=== PATIENT | male | born 1935 | race Caucasian/White ===

== ENCOUNTER 2021-06-25 19:15 | Observation (INO) | payer MEDICARE ==
--- NOTE | 2021-06-25 19:48 | ERPHSYRPT ---
- History of Present Illness Time Seen by Provider: 06/25/21 19:44 Source: patient, family Exam Limitations: no limitations Physician History: pt is short of breath since leaving hospital last week for pneumonia. Has not filled his antibiotics. abd nontender without peritoneal signs, no N or V. Timing/Duration: day(s) Severity of Dyspnea-Max: moderate Severity of Dyspnea-Current: moderate Possible Cause: no prior episodes Modifying Factors: Improves With: nothing Associated Symptoms: cough, chest pain/discomfort Allergies/Adverse Reactions: No Known Drug Allergies Allergy (Unverified 06/25/21 19:37) Home Medications: Aspirin EC 81 mg [Ecotrin 81 mg] 81 mg PO DAILY 06/25/21 [History] Atorvastatin Calcium [Lipitor] 10 mg PO HS 06/25/21 [History] Clopidogrel Bisulfate 75 mg [PLAVIX 75 MG Tablet] 75 mg PO DAILY 06/25/21 [History] Digoxin 0.125 mg Tablet [Lanoxin 0.125MG TABLET] 0.125 mg PO DAILY 06/25/21 [History] Fluticasone Propionate [Flonase NASAL] 1 spray NS DAILY 06/25/21 [History] Furosemide 20 mg [Lasix 20 mg] 20 mg PO DAILY 06/25/21 [History] Isosorbide Mononitrate 30 mg [Imdur 30 MG] 30 mg PO DAILY 06/25/21 [History] Magnesium Oxide 400 mg [Mag-Ox 400] 400 mg PO BID 06/25/21 [History] Metoprolol Tartrate 75 mg PO BID 06/25/21 [History] Nitroglycerin 0.4 mg Tablet [Nitrostat 0.4 MG Tablet] 0.4 mg SL UD 06/25/21 [History] PANTOPRAZOLE 40 mg Tablet [Protonix 40MG Tablet] 40 mg PO QAM 06/25/21 [History] - Review of Systems Constitutional: No Fever, No Chills Eyes: No Symptoms Ears, Nose, & Throat: No Symptoms Respiratory: Cough, Dyspnea Cardiac: Chest Pain, No Edema, No Syncope Abdominal/Gastrointestinal: No Abdominal Pain, No Nausea, No Vomiting, No Diarrhea Genitourinary Symptoms: No Dysuria Musculoskeletal: No Back Pain, No Neck Pain Skin: No Rash Neurological: No Dizziness, No Focal Weakness, No Sensory Changes Psychological: No Symptoms Endocrine: No Symptoms Hematologic/Lymphatic: No Symptoms Immunological/Allergic: No Symptoms All Other Systems: Reviewed and Negative - Past Medical History Pertinent Past Medical History: Yes - Nursing Vital Signs Nursing Vital Signs: Initial Vital Signs Temperature 97.1 F 06/25/21 19:38 Pulse Rate 58 L 06/25/21 19:38 Respiratory Rate 22 06/25/21 19:38 Blood Pressure 128/84 06/25/21 19:38 O2 Sat by Pulse Oximetry 95 06/25/21 19:38 Pain Scale Pain Intensity 0 - Physical Exam General Appearance: moderate distress, alert Eye Exam: PERRL/EOMI Neck Exam: normal inspection, supple Respiratory Exam: crackles/rales, rhonchi, wheezing Cardiovascular/Chest Exam: normal heart sounds, regular rate/rhythm Abdominal/Gastrointestinal Exam: soft, No tenderness, No distention, No mass Extremity Exam: non-tender, normal range of motion, normal inspection, no calf tenderness, no pedal edema Peripheral Pulses Exam: carotid (R): 2+, carotid (L): 2+, femoral (R): 2+, femoral (L): 2+, dorsalis-pedis (R): 2+, dorsalis-pedis (L): 2+ Neurologic Exam: alert, oriented x 3, cooperative, pump assembler II-XII nml as tested, sensation nml, No motor deficits Skin Exam: normal color, warm, No dry SpO2 Interpretation: hypoxic SpO2: 97 O2 Delivery: Nasal Cannula - Course Nursing assessment & vital signs reviewed: Yes EKG Interpreted by Me: A-fib, Right [place] Deviation, Right Bundle Branch Block, Non-specific ST Changes - Radiology Exams Chest X-ray Interpretation: Reviewed by me, Pneumonia (Right LL) - CT Exams Chest CT Interpretation: No PE, Other (COPD, bilateral effusions, CHF, ) Ordered Tests: Active Orders 24 hr Category Date Time Status 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 Care 06/25/21 19:50 Active EKG-ER Only STAT Care 06/25/21 19:49 Active IV Insertion STAT Care 06/25/21 19:49 Active Pulse Oximetry (ED) STAT Care 06/25/21 19:49 Active CHEST 1 VIEW (PORTABLE) Stat Exams 06/25/21 19:50 Taken CHEST WITH CONTRAST [CT] Stat Exams 06/25/21 21:09 Taken CBC W DIFF Stat Lab 06/25/21 20:16 Completed CMP Stat Lab 06/25/21 20:16 Completed D-DIMER QUANTITATIVE Stat Lab 06/25/21 20:16 Completed INFLUENZA A+B KATTY Stat Lab 06/25/21 20:45 Completed Lactic Acid Stat Lab 06/25/21 20:16 Completed Lactic Acid Stat Lab 06/25/21 22:22 Completed NT PRO BNP Stat Lab 06/25/21 20:16 Completed TROPONIN Q3H Lab 06/25/21 20:21 Completed TROPONIN Q3H Lab 06/25/21 23:24 Completed TROPONIN Q3H Lab 06/26/21 02:00 Ordered TROPONIN Q3H Lab 06/26/21 05:00 Ordered TROPONIN Q3H Lab 06/26/21 08:00 Ordered Respiratory Therapy Assessment DAILY RT 06/25/21 19:59 Completed Medication Summary Generic Name Dose Route Start Last Admin Trade Name Freq PRN Reason Stop Dose Admin Furosemide 20 mg 06/26/21 23:32 Furosemide 20 Mg/Vial IV 06/26/21 23:33 STAT ONE Sodium Chloride 1,000 mls @ 50 mls/hr 06/25/21 20:00 06/25/21 20:21 Sodium Chloride 0.9% 1000 Ml IV 07/25/21 19:59 50 mls/hr .Q20H OSORIO Administration Discontinued Medications Generic Name Dose Route Start Last Admin Trade Name Freq PRN Reason Stop Dose Admin Albuterol/Ipratropium 3 ml 06/25/21 19:49 06/25/21 20:03 Ipratropium/Albuterol Sulfate 3 Ml Ampul.Neb IH 06/25/21 19:50 3 ml STAT ONE Administration Albuterol/Ipratropium Confirm 06/25/21 20:00 Ipratropium/Albuterol Sulfate 3 Ml Ampul.Neb Administered 06/25/21 20:01 Dose 3 ml IH .STK-MED ONE Aspirin 81 mg 06/25/21 22:38 Aspirin 81 Mg Tab.Chew PO 06/25/21 22:39 STAT ONE Aspirin 81 mg 06/25/21 22:40 Aspirin 81 Mg Tab.Chew PO 06/25/21 22:41 STAT ONE Aspirin 81 mg 06/25/21 22:40 Aspirin 81 Mg Tab.Chew PO 06/25/21 22:41 STAT ONE Methylprednisolone Sodium 0 mg 06/25/21 19:49 06/25/21 20:21 Succinate 125 mg/ Sterile IV 06/25/21 19:50 125 mg Water 2 ml STAT ONE Administration Furosemide Confirm 06/25/21 23:45 Furosemide 40 Mg/4 Ml Vial Administered 06/25/21 23:46 Dose 40 mg .ROUTE .STK-MED ONE Ceftriaxone Sodium/Dextrose 1 g in 50 mls @ 100 mls/hr 06/25/21 19:49 06/25/21 20:21 Rocephin 1 Gm-D5w 50 Ml Bag IV 06/25/21 20:18 100 ml/hr STAT STA 100 mls/hr Administration Ceftriaxone Sodium/Dextrose Confirm 06/25/21 20:16 Rocephin 1 Gm-D5w 50 Ml Bag Administered 06/25/21 20:17 Dose 1 g in 50 mls @ ud IV .STK-MED ONE Methylprednisolone Sodium Succinate Confirm 06/25/21 20:16 Methylprednis Sod Succ 125 Mg/2 Ml Vial Administered 06/25/21 20:17 Dose 125 mg .ROUTE .STK-MED ONE Nitroglycerin 1 gm 06/25/21 19:49 06/25/21 20:22 Nitroglycerin 1 Gm Packet TOP 06/25/21 19:50 1 gm STAT ONE Administration Nitroglycerin Confirm 06/25/21 20:15 Nitroglycerin 1 Gm Packet Administered 06/25/21 20:16 Dose 1 gm .ROUTE .STK-MED ONE Sterile Water Confirm 06/25/21 20:16 Water For Injection,Sterile 10 Ml Vial Administered 06/25/21 20:17 Dose 10 ml IJ .STK-MED ONE Lab/Rad Data: Laboratory Result Diagrams 06/25/21 20:16 06/25/21 20:16 Laboratory Results 06/25/21 06/25/21 06/25/21 Range/Units 23:24 22:22 20:45 WBC (4.0-10.5) K/mm3 RBC (4.1-5.6) M/mm3 Hgb (12.5-18.0) gm/dl Hct (42-50) % MCV (78-100) fl MCH (26-32) pg MCHC (32-36) g/dl RDW (11.5-14.0) % Plt Count (150-450) K/mm3 MPV (7.5-11.0) fl Gran % (36.0-66.0) % Eos # (Auto) (0-0.5) Absolute Lymphs (auto) (1.0-4.6) Absolute Monos (auto) (0.0-1.3) Lymphocytes % (24.0-44.0) % Monocytes % (0.0-12.0) % Eosinophils % (0.00-5.0) % Basophils % (0.0-0.4) % Absolute Granulocytes (1.4-6.9) Basophils # (0-0.4) D-Dimer (215-500) ng/mL Sodium (137-145) mmol/L Potassium (3.5-5.1) mmol/L Chloride (98-107) mmol/L Carbon Dioxide (22-30) mmol/L Anion Gap (5-15) MEQ/L BUN (9-20) mg/dL Creatinine (0.66-1.25) mg/dL Estimated GFR ML/MIN Glucose (74-106) mg/dL Lactic Acid 1.5 (0.4-2.0) Calcium (8.4-10.2) mg/dL Total Bilirubin (0.2-1.3) mg/dL AST (17-59) U/L ALT (0-50) U/L Alkaline Phosphatase (38-126) U/L Troponin I 0.014 (0.000-0.034) ng/mL NT-Pro-B Natriuret Pep (0-1800) pg/mL Serum Total Protein (6.3-8.2) g/dL Albumin (3.5-5.0) g/dL Influenza Type A Ag NEGATIVE (NEGATIVE) Influenza Type B Ag NEGATIVE (NEGATIVE) 06/25/21 06/25/21 06/25/21 Range/Units 20:21 20:16 20:16 WBC (4.0-10.5) K/mm3 RBC (4.1-5.6) M/mm3 Hgb (12.5-18.0) gm/dl Hct (42-50) % MCV (78-100) fl MCH (26-32) pg MCHC (32-36) g/dl RDW (11.5-14.0) % Plt Count (150-450) K/mm3 MPV (7.5-11.0) fl Gran % (36.0-66.0) % Eos # (Auto) (0-0.5) Absolute Lymphs (auto) (1.0-4.6) Absolute Monos (auto) (0.0-1.3) Lymphocytes % (24.0-44.0) % Monocytes % (0.0-12.0) % Eosinophils % (0.00-5.0) % Basophils % (0.0-0.4) % Absolute Granulocytes (1.4-6.9) Basophils # (0-0.4) D-Dimer 726 H* (215-500) ng/mL Sodium 135 L (137-145) mmol/L Potassium 3.4 L (3.5-5.1) mmol/L Chloride 99 (98-107) mmol/L Carbon Dioxide 24 (22-30) mmol/L Anion Gap 14.8 (5-15) MEQ/L BUN 15 (9-20) mg/dL Creatinine 1.26 H (0.66-1.25) mg/dL Estimated GFR 58.0 ML/MIN Glucose 121 H (74-106) mg/dL Lactic Acid (0.4-2.0) Calcium 8.8 (8.4-10.2) mg/dL Total Bilirubin 0.80 (0.2-1.3) mg/dL AST 22 (17-59) U/L ALT 16 (0-50) U/L Alkaline Phosphatase 117 (38-126) U/L Troponin I 0.016 (0.000-0.034) ng/mL NT-Pro-B Natriuret Pep 62120 H (0-1800) pg/mL Serum Total Protein 7.4 (6.3-8.2) g/dL Albumin 3.8 (3.5-5.0) g/dL Influenza Type A Ag (NEGATIVE) Influenza Type B Ag (NEGATIVE) 06/25/21 06/25/21 Range/Units 20:16 20:16 WBC 5.7 (4.0-10.5) K/mm3 RBC 4.06 L (4.1-5.6) M/mm3 Hgb 12.0 L (12.5-18.0) gm/dl Hct 37.7 L (42-50) % MCV 92.9 (78-100) fl MCH 29.6 (26-32) pg MCHC 31.8 L (32-36) g/dl RDW 14.7 H (11.5-14.0) % Plt Count 230 (150-450) K/mm3 MPV 9.9 (7.5-11.0) fl Gran % 67.5 H (36.0-66.0) % Eos # (Auto) 0.04 (0-0.5) Absolute Lymphs (auto) 1.24 (1.0-4.6) Absolute Monos (auto) 0.56 (0.0-1.3) Lymphocytes % 21.7 L (24.0-44.0) % Monocytes % 9.8 (0.0-12.0) % Eosinophils % 0.7 (0.00-5.0) % Basophils % 0.3 (0.0-0.4) % Absolute Granulocytes 3.86 (1.4-6.9) Basophils # 0.02 (0-0.4) D-Dimer (215-500) ng/mL Sodium (137-145) mmol/L Potassium (3.5-5.1) mmol/L Chloride (98-107) mmol/L Carbon Dioxide (22-30) mmol/L Anion Gap (5-15) MEQ/L BUN (9-20) mg/dL Creatinine (0.66-1.25) mg/dL Estimated GFR ML/MIN Glucose (74-106) mg/dL Lactic Acid 2.5 H (0.4-2.0) Calcium (8.4-10.2) mg/dL Total Bilirubin (0.2-1.3) mg/dL AST (17-59) U/L ALT (0-50) U/L Alkaline Phosphatase (38-126) U/L Troponin I (0.000-0.034) ng/mL NT-Pro-B Natriuret Pep (0-1800) pg/mL Serum Total Protein (6.3-8.2) g/dL Albumin (3.5-5.0) g/dL Influenza Type A Ag (NEGATIVE) Influenza Type B Ag (NEGATIVE) - Progress Progress: improved, re-examined Air Movement: good Progress Note: 06/26/21 00:05 Discussed with pt and Dr. Perez covering and all agree best to be in on obs to resume Tx pneumonia and CHF and trend trops. Blood Culture(s) Obtained: No Antibiotics given: Yes Discussed with DrMargarita: Rinku Will see patient in: hospital (observation) Counseled pt/family regarding: lab results, diagnosis, need for follow-up, rad results - Departure Departure Disposition: Observation Clinical Impression: Pneumonia, CHF (congestive heart failure), Elevated troponin Condition: Good Critical Care Time: No Referrals: JAZMIN PEREZ MD [Primary Care Provider] - Follow up/PCP as directed Instructions: Heart Failure
[2021-06-25] MEDS ORDERED: ROCEPHIN 1 Gm-D5w 50 ml Bag** 1 G/50 ML IVPB IV STA (19:49)
[2021-06-25] MEDS ORDERED: NITRO-BID 2% UD PACKETS TOP ONE (19:49)
[2021-06-25] MEDS ORDERED: solu-MEDROL 125 MG, Sterile H2O 10 ml 2 ML IV ONE ×2 (19:49)
[2021-06-25] MEDS ORDERED: DUONEB 0.5-3 MG/3 ml Neb IH ONE ×2 (19:49→20:00)
[2021-06-25] MEDS ORDERED: Sodium Chloride 0.9% 1000 ML 1,000 ML IV SCH (20:00)
[2021-06-25] MEDS ORDERED: NITRO-BID 2% UD PACKETS ONE (20:15)
[2021-06-25] MEDS ORDERED: ROCEPHIN 1 Gm-D5w 50 ml Bag** 1 G/50 ML IVPB IV ONE (20:16)
[2021-06-25] MEDS ORDERED: solu-MEDROL ONE (20:16)
[2021-06-25] MEDS ORDERED: Sodium Chloride 0.9% 1000 ML 1,000 ML ONE (20:16)
[2021-06-25] MEDS ORDERED: Sterile H2O 10 ml IJ ONE (20:16)
[2021-06-25 20:22] LABS: Absolute Neutrophil Ct (ANC) 3.86 (1.4-6.9); Basophil (Absolute #) 0.02 (0-0.4); Eosinophil % 0.7 % (0.00-5.0); Eosinophil (Absolute #) 0.04 (0-0.5); Hematocrit 37.7 % (42-50); Lymphocyte (Absolute #) 1.24 (1.0-4.6); Lymphocytes % 21.7 % (24.0-44.0); Mean Cell Volume 92.9 fl (78-100); Mean Corpuscular Hemoglobin 29.6 pg (26-32); Mean Corpuscular Hgb Concent. 31.8 g/dl (32-36); Mean Platelet Volume 9.9 fl (7.5-11.0); Monocyte (Absolute #) 0.56 (0.0-1.3); Monocytes % 9.8 % (0.0-12.0); Neutrophil % 67.5 % (36.0-66.0); Platelet Count 230 K/mm3 (150-450); Red Blood Count 4.06 M/mm3 (4.1-5.6); Red Cell Distribution Width 14.7 % (11.5-14.0); White Blood Count 5.7 K/mm3 (4.0-10.5)
[2021-06-25 20:43] LABS: ALBUMIN 3.8 g/dL (3.5-5.0); ANION GAP 14.8 MEQ/L (5-15); BILIRUBIN,TOTAL 0.8 mg/dL (0.2-1.3); Calcium 8.8 mg/dL (8.4-10.2); Creatinine 1 1.26 mg/dL (0.66-1.25); Potassium 3.4 mmol/L (3.5-5.1); Total Protein 7.4 g/dL (6.3-8.2)
[2021-06-25 21:27] LABS: INFLUENZA A NEGATIVE (NEGATIVE); INFLUENZA B NEGATIVE (NEGATIVE)
[2021-06-25] MEDS ORDERED: BABY ASPIRIN 81 MG CHEW PO ONE ×3 (22:38→22:40)
[2021-06-25] MEDS ORDERED: Lasix 40 MG/4 ML ONE (23:45)
[2021-06-26 00:55] LABS: INFLUENZA A NEGATIVE (NEGATIVE); INFLUENZA B NEGATIVE (NEGATIVE); RESPIRATORY SYNCTIAL VIRUS NEGATIVE (Negative); SARS-CoV-2 Xpert Express NEGATIVE (NEGATIVE)
[2021-06-26] MEDS ORDERED: Senokot-S Tablet PO PRN (01:13)
[2021-06-26] MEDS ORDERED: MILK OF MAGNESIA 30 ML PO PRN (01:13)
[2021-06-26] MEDS ORDERED: MORPHINE SULFATE 4 MG INJ IV PRN (01:13)
[2021-06-26] MEDS ORDERED: Zofran 4 MG/2 ML VIAL IV PRN (01:13)
[2021-06-26] MEDS ORDERED: HUMULIN R SQ PRN (01:13)
[2021-06-26] MEDS ORDERED: MAALOX ES 30 ML UNIT DOSE PO PRN (01:13)
[2021-06-26] MEDS ORDERED: DUONEB 0.5-3 MG/3 ml Neb IH PRN (01:13)
[2021-06-26] MEDS ORDERED: TYLENOL 325 MG PO PRN (01:13)
[2021-06-26] MEDS ORDERED: Zosyn 3.375 GM Vial IV ONE (05:04)
[2021-06-26] MEDS ORDERED: Sodium Chloride 100ML MINI-BAG PLUS 100 ML IV ONE (05:06)
[2021-06-26] MEDS: Zosyn 3.375 GM Vial 3.375 GM in Sodium Chloride 100ML MINI-BAG PLUS 100 ML IV SCH ×3 (05:12→17:37)
[2021-06-26 05:40] LABS: Absolute Neutrophil Ct (ANC) 2.37 (1.4-6.9); Basophil (Absolute #) 0.01 (0-0.4); Eosinophil (Absolute #) 0 (0-0.5); Hematocrit 40.1 % (42-50); Hemoglobin 12.9 gm/dl (12.5-18.0); Lymphocytes % 14.2 % (24.0-44.0); Mean Corpuscular Hemoglobin 29.6 pg (26-32); Mean Corpuscular Hgb Concent. 32.2 g/dl (32-36); Mean Platelet Volume 9.6 fl (7.5-11.0); Monocyte (Absolute #) 0.04 (0.0-1.3); Monocytes % 1.4 % (0.0-12.0); Platelet Count 232 K/mm3 (150-450); Red Blood Count 4.36 M/mm3 (4.1-5.6); Red Cell Distribution Width 14.7 % (11.5-14.0); White Blood Count 2.8 K/mm3 (4.0-10.5)
[2021-06-26 06:11] LABS: ALBUMIN 3.9 g/dL (3.5-5.0); ALKALINE PHOSPHATASE 122 U/L (38-126); ANION GAP 16.1 MEQ/L (5-15); BLOOD UREA NITROGEN 14 mg/dL (9-20); CHLORIDE 100 mmol/L (98-107); Calcium 8.9 mg/dL (8.4-10.2); Carbon Dioxide 22 mmol/L (22-30); Cholesterol 121 mg/dL (50-200); Creatinine 1 1.11 mg/dL (0.66-1.25); EST GLOMERULAR FILTRATION RATE > 60.0 ML/MIN; Glucose 177 mg/dL (74-106); HDL CHOLESTEROL 38 mg/dL (40-60); LDL, DIRECT 68 mg/dL (30-100); Potassium 3.5 mmol/L (3.5-5.1); Risk Ratio 3.2; SGOT/AST 24 U/L (17-59); SGPT/ALT 18 U/L (0-50); SODIUM 135 mmol/L (137-145); TRIGLYCERIDE 68 mg/dL (30-150); Total Protein 7.7 g/dL (6.3-8.2)
--- NOTE | 2021-06-26 06:35 | PCM.HP ---
History of Present Illness - Chief Complaint Chief Complaint: Chest Pain History of Present Illness: is a 86 year old male who was released from the hospital at [facility] 1 week ago with pneumonia, states he did not fill his antibiotics and has felt short of breath since leaving, he is very sleepy this morning but is arousable. he spent most of the night in the ER and was seen very early this morning, he denies shortness of breath this morning and is on room air currently. - Review of Systems Constitutional: No Fever, No Chills Respiratory: Short Of Breath Cardiac: No Chest Pain, No Edema, No Syncope Abdominal/Gastrointestinal: No Abdominal Pain, No Nausea, No Vomiting, No Diarrhea Skin: No Rash All Other Systems: Reviewed and Negative Medications & Allergies Home Medications: Home Medication List Aspirin EC 81 mg [Ecotrin 81 mg] 81 mg PO DAILY 06/25/21 [History Confirmed 06/25/21] Atorvastatin Calcium [Lipitor] 10 mg PO HS 06/25/21 [History Confirmed 06/25/21] Clopidogrel Bisulfate 75 mg [PLAVIX 75 MG Tablet] 75 mg PO DAILY 06/25/21 [History Confirmed 06/25/21] Digoxin 0.125 mg Tablet [Lanoxin 0.125MG TABLET] 0.125 mg PO DAILY 06/25/21 [History Confirmed 06/25/21] Fluticasone Propionate [Flonase NASAL] 1 spray NS DAILY 06/25/21 [History Confirmed 06/25/21] Furosemide 20 mg [Lasix 20 mg] 20 mg PO DAILY 06/25/21 [History Confirmed 06/25/21] Isosorbide Mononitrate 30 mg [Imdur 30 MG] 30 mg PO DAILY 06/25/21 [History Confirmed 06/25/21] Magnesium Oxide 400 mg [Mag-Ox 400] 400 mg PO BID 06/25/21 [History Confirmed 06/25/21] Metoprolol Tartrate 75 mg PO BID 06/25/21 [History Confirmed 06/25/21] Nitroglycerin 0.4 mg Tablet [Nitrostat 0.4 MG Tablet] 0.4 mg SL UD 06/25/21 [History Confirmed 06/25/21] PANTOPRAZOLE 40 mg Tablet [Protonix 40MG Tablet] 40 mg PO QAM 06/25/21 [History Confirmed 06/25/21] Allergies/Adverse Reactions: Allergies Allergy/AdvReac Type Severity Reaction Status Date / Time No Known Drug Allergies Allergy Unverified 06/25/21 19:37 - Past Medical History Past Medical History: Yes Neurological History: No Pertinent History ENT History: No Pertinent History Cardiac History: Arrhythmia, Coronary Artery Disease, High Cholesterol, Hypertension, Myocardial Infarction ([place]) Respiratory History: Pneumonia Endocrine Medical History: No Pertinent History Musculoskelatal History: No Pertinent History History: No Pertinent History Pyscho-Social History: No Pertinent History Male Reproductive Disorders: Other Comment: carotid aretery stenosis, chrnoic afib, trouble urinating - Past Surgical History Past Surgical History: Yes Neuro Surgical History: No Pertinent History Cardiac History: CABG Respiratory Surgery: No Pertinent History GI Surgical History: Hernia Repair Genitourinary Surgical Hx: No Pertinent History Musculskeletal Surgical Hx: Orthopedic Surgery Male Surgical History: No Pertinent History Other Surgical History: hip fx - Social History Smoking Status: Former smoker Exposure to second hand smoke: No Alcohol: None Drug Use: none - Physical Exam Vital Signs: Vital Signs - 24 hr Temp Pulse Resp BP Pulse Ox 06/26/21 04:00 97.5 F 72 20 168/72 94 L 06/26/21 03:11 68 20 96 06/26/21 01:59 97.5 F 78 20 179/97 98 06/26/21 01:57 98 06/26/21 01:53 98 06/26/21 01:07 62 16 180/99 98 06/26/21 00:09 97 06/26/21 00:05 64 16 158/76 97 06/25/21 23:15 68 18 173/108 97 06/25/21 22:00 61 24 176/94 98 06/25/21 21:11 58 L 18 170/98 98 06/25/21 20:49 47 L 16 176/80 99 06/25/21 20:06 62 15 99 06/25/21 19:38 97.1 F 58 L 22 128/84 95 General Appearance: no apparent distress Neurologic Exam: alert Respiratory Exam: normal breath sounds, lungs clear, No respiratory distress Cardiovascular Exam: regular rate/rhythm, normal heart sounds, normal peripheral pulses Gastrointestinal/Abdomen Exam: soft, normal bowel sounds, No tenderness, No mass Extremity Exam: normal inspection, normal range of motion, pelvis stable Skin Exam: normal color, warm, dry, No rash Results - Labs Lab/Micro Results: Lab Results-Last 24 Hours 06/25/21 06/25/21 06/25/21 Range/Units 20:16 20:16 20:16 WBC 5.7 (4.0-10.5) K/mm3 RBC 4.06 L (4.1-5.6) M/mm3 Hgb 12.0 L (12.5-18.0) gm/dl Hct 37.7 L (42-50) % MCV 92.9 (78-100) fl MCH 29.6 (26-32) pg MCHC 31.8 L (32-36) g/dl RDW 14.7 H (11.5-14.0) % Plt Count 230 (150-450) K/mm3 MPV 9.9 (7.5-11.0) fl Gran % 67.5 H (36.0-66.0) % Eos # (Auto) 0.04 (0-0.5) Absolute Lymphs (auto) 1.24 (1.0-4.6) Absolute Monos (auto) 0.56 (0.0-1.3) Lymphocytes % 21.7 L (24.0-44.0) % Monocytes % 9.8 (0.0-12.0) % Eosinophils % 0.7 (0.00-5.0) % Basophils % 0.3 (0.0-0.4) % Absolute Granulocytes 3.86 (1.4-6.9) Basophils # 0.02 (0-0.4) D-Dimer (215-500) ng/mL Sodium 135 L (137-145) mmol/L Potassium 3.4 L (3.5-5.1) mmol/L Chloride 99 (98-107) mmol/L Carbon Dioxide 24 (22-30) mmol/L Anion Gap 14.8 (5-15) MEQ/L BUN 15 (9-20) mg/dL Creatinine 1.26 H (0.66-1.25) mg/dL Estimated GFR 58.0 ML/MIN Glucose 121 H (74-106) mg/dL Lactic Acid 2.5 H (0.4-2.0) Calcium 8.8 (8.4-10.2) mg/dL Total Bilirubin 0.80 (0.2-1.3) mg/dL AST 22 (17-59) U/L ALT 16 (0-50) U/L Alkaline Phosphatase 117 (38-126) U/L Troponin I (0.000-0.034) ng/mL NT-Pro-B Natriuret Pep 89160 H (0-1800) pg/mL Serum Total Protein 7.4 (6.3-8.2) g/dL Albumin 3.8 (3.5-5.0) g/dL Triglycerides (30-150) mg/dL Cholesterol (50-200) mg/dL LDL Cholesterol (30-100) mg/dL HDL Cholesterol (40-60) mg/dL Heart Disease Risk Ratio Influenza Type A Ag (NEGATIVE) Influenza Type B Ag (NEGATIVE) RSV (PCR) (Negative) SARS-CoV-2 (PCR) (NEGATIVE) 06/25/21 06/25/21 06/25/21 Range/Units 20:16 20:21 20:45 WBC (4.0-10.5) K/mm3 RBC (4.1-5.6) M/mm3 Hgb (12.5-18.0) gm/dl Hct (42-50) % MCV (78-100) fl MCH (26-32) pg MCHC (32-36) g/dl RDW (11.5-14.0) % Plt Count (150-450) K/mm3 MPV (7.5-11.0) fl Gran % (36.0-66.0) % Eos # (Auto) (0-0.5) Absolute Lymphs (auto) (1.0-4.6) Absolute Monos (auto) (0.0-1.3) Lymphocytes % (24.0-44.0) % Monocytes % (0.0-12.0) % Eosinophils % (0.00-5.0) % Basophils % (0.0-0.4) % Absolute Granulocytes (1.4-6.9) Basophils # (0-0.4) D-Dimer 726 H* (215-500) ng/mL Sodium (137-145) mmol/L Potassium (3.5-5.1) mmol/L Chloride (98-107) mmol/L Carbon Dioxide (22-30) mmol/L Anion Gap (5-15) MEQ/L BUN (9-20) mg/dL Creatinine (0.66-1.25) mg/dL Estimated GFR ML/MIN Glucose (74-106) mg/dL Lactic Acid (0.4-2.0) Calcium (8.4-10.2) mg/dL Total Bilirubin (0.2-1.3) mg/dL AST (17-59) U/L ALT (0-50) U/L Alkaline Phosphatase (38-126) U/L Troponin I 0.016 (0.000-0.034) ng/mL NT-Pro-B Natriuret Pep (0-1800) pg/mL Serum Total Protein (6.3-8.2) g/dL Albumin (3.5-5.0) g/dL Triglycerides (30-150) mg/dL Cholesterol (50-200) mg/dL LDL Cholesterol (30-100) mg/dL HDL Cholesterol (40-60) mg/dL Heart Disease Risk Ratio Influenza Type A Ag NEGATIVE (NEGATIVE) Influenza Type B Ag NEGATIVE (NEGATIVE) RSV (PCR) (Negative) SARS-CoV-2 (PCR) (NEGATIVE) 06/25/21 06/25/21 06/26/21 Range/Units 22:22 23:24 00:12 WBC (4.0-10.5) K/mm3 RBC (4.1-5.6) M/mm3 Hgb (12.5-18.0) gm/dl Hct (42-50) % MCV (78-100) fl MCH (26-32) pg MCHC (32-36) g/dl RDW (11.5-14.0) % Plt Count (150-450) K/mm3 MPV (7.5-11.0) fl Gran % (36.0-66.0) % Eos # (Auto) (0-0.5) Absolute Lymphs (auto) (1.0-4.6) Absolute Monos (auto) (0.0-1.3) Lymphocytes % (24.0-44.0) % Monocytes % (0.0-12.0) % Eosinophils % (0.00-5.0) % Basophils % (0.0-0.4) % Absolute Granulocytes (1.4-6.9) Basophils # (0-0.4) D-Dimer (215-500) ng/mL Sodium (137-145) mmol/L Potassium (3.5-5.1) mmol/L Chloride (98-107) mmol/L Carbon Dioxide (22-30) mmol/L Anion Gap (5-15) MEQ/L BUN (9-20) mg/dL Creatinine (0.66-1.25) mg/dL Estimated GFR ML/MIN Glucose (74-106) mg/dL Lactic Acid 1.5 (0.4-2.0) Calcium (8.4-10.2) mg/dL Total Bilirubin (0.2-1.3) mg/dL AST (17-59) U/L ALT (0-50) U/L Alkaline Phosphatase (38-126) U/L Troponin I 0.014 (0.000-0.034) ng/mL NT-Pro-B Natriuret Pep (0-1800) pg/mL Serum Total Protein (6.3-8.2) g/dL Albumin (3.5-5.0) g/dL Triglycerides (30-150) mg/dL Cholesterol (50-200) mg/dL LDL Cholesterol (30-100) mg/dL HDL Cholesterol (40-60) mg/dL Heart Disease Risk Ratio Influenza Type A Ag NEGATIVE (NEGATIVE) Influenza Type B Ag NEGATIVE (NEGATIVE) RSV (PCR) NEGATIVE (Negative) SARS-CoV-2 (PCR) NEGATIVE (NEGATIVE) 06/26/21 06/26/21 06/26/21 Range/Units 02:10 05:00 05:00 WBC 2.8 L (4.0-10.5) K/mm3 RBC 4.36 (4.1-5.6) M/mm3 Hgb 12.9 (12.5-18.0) gm/dl Hct 40.1 L (42-50) % MCV 92.0 (78-100) fl MCH 29.6 (26-32) pg MCHC 32.2 (32-36) g/dl RDW 14.7 H (11.5-14.0) % Plt Count 232 (150-450) K/mm3 MPV 9.6 (7.5-11.0) fl Gran % 84.0 H (36.0-66.0) % Eos # (Auto) 0 (0-0.5) Absolute Lymphs (auto) 0.40 L (1.0-4.6) Absolute Monos (auto) 0.04 (0.0-1.3) Lymphocytes % 14.2 L (24.0-44.0) % Monocytes % 1.4 (0.0-12.0) % Eosinophils % 0.0 (0.00-5.0) % Basophils % 0.4 (0.0-0.4) % Absolute Granulocytes 2.37 (1.4-6.9) Basophils # 0.01 (0-0.4) D-Dimer (215-500) ng/mL Sodium 135 L (137-145) mmol/L Potassium 3.5 (3.5-5.1) mmol/L Chloride 100 (98-107) mmol/L Carbon Dioxide 22 (22-30) mmol/L Anion Gap 16.1 H (5-15) MEQ/L BUN 14 (9-20) mg/dL Creatinine 1.11 (0.66-1.25) mg/dL Estimated GFR > 60.0 ML/MIN Glucose 177 H (74-106) mg/dL Lactic Acid (0.4-2.0) Calcium 8.9 (8.4-10.2) mg/dL Total Bilirubin 1.00 (0.2-1.3) mg/dL AST 24 (17-59) U/L ALT 18 (0-50) U/L Alkaline Phosphatase 122 (38-126) U/L Troponin I < 0.012 (0.000-0.034) ng/mL NT-Pro-B Natriuret Pep (0-1800) pg/mL Serum Total Protein 7.7 (6.3-8.2) g/dL Albumin 3.9 (3.5-5.0) g/dL Triglycerides 68 (30-150) mg/dL Cholesterol 121 (50-200) mg/dL LDL Cholesterol 68 (30-100) mg/dL HDL Cholesterol 38 L (40-60) mg/dL Heart Disease Risk Ratio 3.2 Influenza Type A Ag (NEGATIVE) Influenza Type B Ag (NEGATIVE) RSV (PCR) (Negative) SARS-CoV-2 (PCR) (NEGATIVE) - Radiology Impressions Radiology Exams & Impressions: Radiology Procedures Category Date Time Status CHEST 1 VIEW (PORTABLE) Stat Exams 06/25/21 19:50 Taken CHEST WITH CONTRAST [CT] Stat Exams 06/25/21 21:09 Taken - Other Procedures and Tests Respiratory Therapy 06/25/21 19:59 Respiratory Therapy Assessment DAILY 06/26/21 05:00 EKG DAILY 06/27/21 05:00 EKG DAILY 06/28/21 05:00 EKG ROUTINE 06/29/21 05:00 EKG DAILY Assessment/Plan (1) CHF (congestive heart failure) Current Visit: Yes Status: Acute Assessment & Plan: po lasix ordered, currently sounds clear on exam, diuresed well with 1 dose IV lasix in ER Code(s): I50.9 - HEART FAILURE, UNSPECIFIED (2) Pneumonia Current Visit: Yes Status: Acute Assessment & Plan: zosyn ordered, lovenox for prophylaxis Code(s): J18.9 - PNEUMONIA, UNSPECIFIED ORGANISM
[2021-06-26 07:26] LABS: Slide Review 1 YES
[2021-06-26] MEDS: Pepcid 20 MG VIAL IV SCH ×2 (09:10→22:19)
--- NOTE | 2021-06-26 09:11 | XRAY ---
Indication: Cough and short of breath. Elevated d-dimer. Multiple contiguous axial images obtained through the chest using 80 cc Isovue 370 contrast and PE protocol. Comparison: None Good opacification of the pulmonary arteries to include the lobar and segmental branches. No pulmonary embolus. Heart is now enlarged with interval CABG surgery. Contrast refluxes into the IVC/hepatic veins favoring right heart failure. Aorta remains moderately arteriosclerotic without aneurysm/dissection. Interval enlarging small mediastinal lymph nodes, largest subcarinal measuring 1.6 x 2.9 cm. Lungs again demonstrates marked diffuse centrilobular pulmonary edema. New moderate bilateral pleural effusions right greater than left with bibasilar compressive atelectasis. Bony thorax intact again with osteopenia and degenerative changes throughout the spine. Stable T8 endplate fracture versus prominent small node. Limited upper abdomen demonstrates small perihepatic fluid. Impression: 1. Negative pulmonary embolus. 2. New cardiomegaly with bilateral effusions favoring cardiac decompensation/CHF. New perihepatic fluid presumed related. 3. Enlarging mediastinal adenopathy presumed reactive. 4. Again pulmonary emphysema and chronic bony findings. Comment: Preliminary interpretation made by [facility]. No critical discrepancy.
[2021-06-26] MEDS: Lanoxin 0.125MG TABLET PO SCH (09:12)
[2021-06-26] MEDS: Lopressor 50 MG PO SCH ×2 (09:13→22:19)
--- NOTE | 2021-06-26 09:13 | XRAY ---
Indication: Short of breath. Comparison: None Portable chest demonstrates cardiomegaly with CABG, diffuse pulmonary edema, and small bibasilar effusions favoring cardiac decompensation/CHF. Superimposed pneumonia not completely excluded. Bony thorax intact with osteopenia and degenerative changes.
[2021-06-26] MEDS: Klor Con 10 MEQ PO SCH (09:14)
[2021-06-26] MEDS: PLAVIX 75 MG Tablet PO SCH (09:14)
[2021-06-26] MEDS: LASIX 20 MG PO SCH (09:15)
[2021-06-26] MEDS: ENOXAPARIN SODIUM SQ SCH (09:19)
[2021-06-26] MEDS: ECOTRIN 81 MG PO SCH (09:19)
[2021-06-26] MEDS: Imdur 30 MG PO SCH (09:19)
[2021-06-26] MEDS: Protonix 40MG Tablet PO SCH (09:19)
[2021-06-26] MEDS: MAG-OX 400 PO SCH ×2 (09:20→22:19)
[2021-06-26] MEDS ORDERED: NON-FORMULARY ITEM (Metoprolol Tartrate [Metoprolol Tartrate] 75 MG Tablet) PO SCH (10:00)
[2021-06-26] MEDS ORDERED: Ecotrin 325 MG PO SCH (10:00)
[2021-06-26] MEDS ORDERED: Lasix 20 MG/2 ML IV SCH (10:00)
[2021-06-26] MEDS: Sodium Chloride 0.9% 500 ML 500 ML IV SCH (16:47)
[2021-06-26] MEDS ORDERED: NON-FORMULARY ITEM (Atorvastatin Calcium 10 MG Tablet) PO SCH (22:00)
[2021-06-26] MEDS ORDERED: Zocor 10MG PO SCH (22:00)
[2021-06-26] MEDS ORDERED: Lasix 20 MG/2 ML IV ONE (23:32)
[2021-06-27] MEDS: Zosyn 3.375 GM Vial 3.375 GM in Sodium Chloride 100ML MINI-BAG PLUS 100 ML IV SCH ×2 (01:02→06:15)
[2021-06-27 06:02] LABS: Absolute Neutrophil Ct (ANC) 6.67 (1.4-6.9); Basophil (Absolute #) 0.02 (0-0.4); Eosinophil (Absolute #) 0 (0-0.5); Hematocrit 40.9 % (42-50); Hemoglobin 12.8 gm/dl (12.5-18.0); Lymphocyte (Absolute #) 1.65 (1.0-4.6); Mean Cell Volume 93.2 fl (78-100); Mean Corpuscular Hemoglobin 29.2 pg (26-32); Mean Corpuscular Hgb Concent. 31.3 g/dl (32-36); Mean Platelet Volume 9.8 fl (7.5-11.0); Monocyte (Absolute #) 0.83 (0.0-1.3); Monocytes % 9.1 % (0.0-12.0); Neutrophil % 72.7 % (36.0-66.0); Platelet Count 232 K/mm3 (150-450); Red Blood Count 4.39 M/mm3 (4.1-5.6); Red Cell Distribution Width 14.9 % (11.5-14.0); White Blood Count 9.2 K/mm3 (4.0-10.5)
[2021-06-27 06:47] LABS: ANION GAP 17.6 MEQ/L (5-15); BILIRUBIN,TOTAL 0.9 mg/dL (0.2-1.3); Creatinine 1 1.3 mg/dL (0.66-1.25); EST GLOMERULAR FILTRATION RATE 55.9 ML/MIN; MAGNESIUM 2.2 mg/dL (1.6-2.3); Potassium 3.7 mmol/L (3.5-5.1); Total Protein 7.6 g/dL (6.3-8.2)
[2021-06-27 07:47] VITALS: BP 175/97; PULSE 96; O2SAT 90
[2021-06-27] MEDS: Sodium Chloride 0.9% 500 ML 500 ML IV SCH (07:47)
[2021-06-27] MEDS: LASIX 20 MG PO SCH (08:47)
[2021-06-27] MEDS: MAG-OX 400 PO SCH (08:47)
[2021-06-27] MEDS: Imdur 30 MG PO SCH (08:47)
[2021-06-27] MEDS: Lopressor 50 MG PO SCH (08:47)
[2021-06-27] MEDS: Klor Con 10 MEQ PO SCH (08:47)
[2021-06-27] MEDS: Protonix 40MG Tablet PO SCH (08:47)
[2021-06-27] MEDS: Lanoxin 0.125MG TABLET PO SCH (08:47)
[2021-06-27] MEDS: ECOTRIN 81 MG PO SCH (08:48)
[2021-06-27] MEDS: ENOXAPARIN SODIUM SQ SCH (08:48)
--- NOTE | 2021-06-27 08:48 | PCM.DS ---
Discharge Summary Date of Admission: 06/26/21 01:07 Admitting Physician: JAZMIN PEREZ Primary Care Provider: JAZMIN PEREZ Allergies Allergies No Known Drug Allergies Allergy (Unverified 06/25/21 19:37) Hospital Summary - Hospital Course Hospital Course: is a 86 year old male who was released from the hospital at [facility] 1 week ago with pneumonia, did not fill his antibiotics and felt short of breath since leaving. Was found on admission to have infiltrates and also mild CHF. The CHF has resolved with po lasix. This morning he is feeling well, just some SOB with activity. He is herminio po. Would like to be discharged to home. Will need to f/u with PCP in 1 week. Will be discharged on po augmentin and a probiotic. He said he was not on lasix chronically at home, but 20mg po lasix is on his home med list so will continue that with the addition of small amount of lasix. - Vitals & Intake/Output Vital Signs: Vital Signs Temperature 96.5 F 06/27/21 07:47 Pulse Rate 96 H 06/27/21 07:47 Respiratory Rate 21 06/27/21 07:47 Blood Pressure 175/97 06/27/21 07:47 O2 Sat by Pulse Oximetry 90 L 06/27/21 07:47 Intake & Output: Intake & Output 06/24/21 06/25/21 06/26/21 06/27/21 11:59 11:59 11:59 11:59 Intake Total 560 1399 Output Total 450 Balance 110 1399 Weight 71.8 kg 70.3 kg - Lab Result Diagrams: 06/27/21 04:00 06/27/21 05:15 Lab Results-Last 24 Hrs: Lab Results-Last 24 Hours 06/27/21 06/27/21 Range/Units 04:00 05:15 WBC 9.2 (4.0-10.5) K/mm3 RBC 4.39 (4.1-5.6) M/mm3 Hgb 12.8 (12.5-18.0) gm/dl Hct 40.9 L (42-50) % MCV 93.2 (78-100) fl MCH 29.2 (26-32) pg MCHC 31.3 L (32-36) g/dl RDW 14.9 H (11.5-14.0) % Plt Count 232 (150-450) K/mm3 MPV 9.8 (7.5-11.0) fl Gran % 72.7 H (36.0-66.0) % Eos # (Auto) 0 (0-0.5) Absolute Lymphs (auto) 1.65 (1.0-4.6) Absolute Monos (auto) 0.83 (0.0-1.3) Lymphocytes % 18.0 L (24.0-44.0) % Monocytes % 9.1 (0.0-12.0) % Eosinophils % 0.0 (0.00-5.0) % Basophils % 0.2 (0.0-0.4) % Absolute Granulocytes 6.67 (1.4-6.9) Basophils # 0.02 (0-0.4) Sodium 135 L (137-145) mmol/L Potassium 3.7 (3.5-5.1) mmol/L Chloride 98 (98-107) mmol/L Carbon Dioxide 23 (22-30) mmol/L Anion Gap 17.6 H (5-15) MEQ/L BUN 20 (9-20) mg/dL Creatinine 1.30 H (0.66-1.25) mg/dL Estimated GFR 55.9 ML/MIN Glucose 103 (74-106) mg/dL Calcium 9.0 (8.4-10.2) mg/dL Magnesium 2.2 (1.6-2.3) mg/dL Total Bilirubin 0.90 (0.2-1.3) mg/dL AST 26 (17-59) U/L ALT 16 (0-50) U/L Alkaline Phosphatase 99 (38-126) U/L Serum Total Protein 7.6 (6.3-8.2) g/dL Albumin 4.0 (3.5-5.0) g/dL - Radiology Exams Ordered Rad Exams-Entire Visit: Radiology Procedures Category Date Time Status CHEST 1 VIEW (PORTABLE) Stat Exams 06/25/21 19:50 Completed CHEST WITH CONTRAST [CT] Stat Exams 06/25/21 21:09 Completed - Procedures and Test Procedures and Tests throughout Hospitalization: Therapy Orders & Screens 06/25/21 19:59 Respiratory Therapy Assessment DAILY Comment: 06/26/21 01:13 EKG Q8HX2,QAMX3,PRN Comment: Respiratory Therapy Consult ONCE Comment: Reason For Exam: 06/26/21 02:16 RT Screen per Nursing Assess ONCE Comment: Protocol Order Physician Instructions: Greater than 3 points order RT Admission Screen Reason For Exam: Triggered on Admission Diagnosis: Chest Pain Diagnosis: Chest Pain Pneumonia: Yes Home O2: No Asthma: No CHF: Yes Home CPAP/BIPAP: No Home Nebs/MDI: No Total Points: 6 06/26/21 05:00 EKG DAILY Comment: Diagnosis: Chest Pain 06/26/21 11:50 EKG STAT Comment: Diagnosis: Chest Pain 06/27/21 05:00 EKG DAILY Comment: Diagnosis: Chest Pain 06/28/21 05:00 EKG ROUTINE Comment: Diagnosis: Chest Pain 06/29/21 05:00 EKG DAILY Comment: Diagnosis: Chest Pain Discharge Exam General Appearance: no apparent distress, alert Neurologic Exam: oriented x 3, cooperative Eye Exam: eyes nml inspection Ears, Nose, Throat Exam: moist mucous membranes Neck Exam: normal inspection Respiratory Exam: normal breath sounds, rhonchi (RLL, scattered), No crackles/rales, No wheezing Cardiovascular Exam: regular rate/rhythm, normal heart sounds, No murmur Gastrointestinal/Abdomen Exam: soft, normal bowel sounds, No tenderness, No distention, No mass, No guarding, No rebound Back Exam: normal inspection, No rash Extremity Exam: normal inspection, No pedal edema, No swelling Skin Exam: normal color, warm, dry, No rash Final Diagnosis/Problem List - Final Discharge Diagnosis/Problem (1) CHF (congestive heart failure) Current Visit: Yes Status: Acute Assessment & Plan: Appears resolved with po lasix. Will send pt on po lasix, as he was on previously, and have dietary discuss low sodium diet. F/u with PCP in 1 week. Code(s): I50.9 - HEART FAILURE, UNSPECIFIED (2) Pneumonia Current Visit: Yes Status: Acute Assessment & Plan: Home on po augmentin. Have discussed with pt that he needs to get the abx filled and take them. Code(s): J18.9 - PNEUMONIA, UNSPECIFIED ORGANISM (3) Hyponatremia Current Visit: Yes Status: Chronic Code(s): E87.1 - HYPO-OSMOLALITY AND HYPONATREMIA (4) Chronic renal insufficiency Current Visit: Yes Status: Chronic Code(s): N18.9 - CHRONIC KIDNEY DISEASE, UNSPECIFIED - Discharge Disposition: Home, Self-Care Condition: Good Prescriptions: New Lactobacillus Acidophilus [Acidophilus Lactobacilli] 1 each PO BID #20 tab Amox Tr/Potass Clav. 875 mg [Augmentin 875-125 Tablet] 875 mg PO BID #20 tablet Albuterol/Ipratropium 3ml Neb* [DUONEB 0.5-3 MG/3 ml Neb] 3 ml IH QIDPRN PRN #40 unit PRN Reason: Shortness Of Breath/Wheezing Potassium Chloride 10 meq PO DAILY #30 tab Continue PANTOPRAZOLE 40 mg Tablet [Protonix 40MG Tablet] 40 mg PO QAM Nitroglycerin 0.4 mg Tablet [Nitrostat 0.4 MG Tablet] 0.4 mg SL UD Metoprolol Tartrate 75 mg PO BID Magnesium Oxide 400 mg [Mag-Ox 400] 400 mg PO BID Isosorbide Mononitrate 30 mg [Imdur 30 MG] 30 mg PO DAILY Furosemide 20 mg [Lasix 20 mg] 20 mg PO DAILY Fluticasone Propionate [Flonase NASAL] 1 spray NS DAILY Digoxin 0.125 mg Tablet [Lanoxin 0.125MG TABLET] 0.125 mg PO DAILY Clopidogrel Bisulfate 75 mg [PLAVIX 75 MG Tablet] 75 mg PO DAILY Atorvastatin Calcium [Lipitor] 10 mg PO HS Aspirin EC 81 mg [Ecotrin 81 mg] 81 mg PO DAILY Instructions: Pneumonia, Adult (DC) Follow up with: JAZMIN PEREZ MD [Primary Care Provider] -
[2021-06-27] MEDS: Pepcid 20 MG VIAL IV SCH (08:49)
[2021-06-27] MEDS: PLAVIX 75 MG Tablet PO SCH (08:49)
== END 2021-06-27 09:43 | disposition home or self-care (01) ==
LOC: ED 19:15 → MED SURG 06-26 01:07
PROVIDERS: ADMIT Family Medicine; ATTEND Family Medicine
DX: I11.0 Hypertensive heart disease with heart failure (principal); I50.9 Heart failure, unspecified; J18.9 Pneumonia, unspecified organism; E87.1 Hypo-osmolality and hyponatremia; N18.9 Chronic kidney disease, unspecified; I25.10 Atherosclerotic heart disease of native coronary artery without angina pectoris; E78.00 Pure hypercholesterolemia, unspecified; I48.20 Chronic atrial fibrillation, unspecified; I25.2 Old myocardial infarction; Z79.899 Other long term (current) drug therapy; Z20.828 Contact with and (suspected) exposure to other viral communicable diseases
CPT/HCPCS: 0241U; 36000; 36415; 71045; 71260; 80053; 80061; 82947; 83605; 83721; 83735; 83880; 84484; 85025; 85379; 87400; 93005; 93041; 94640; 94760; 94762; 96374; 96375; 99285; 93268; J0696; J1650; J1940; J2930; A9270-GY; G0378